=== PATIENT | male | born 1975 | race Caucasian/White ===

== ENCOUNTER 2016-11-24 23:09 | Inpatient (IN) ==
[2016-11-24 23:39] LABS: Bilirubin,Urine Negative (Negative); Blood,Urine Trace (Negative); Clarity,Urine Clear (Clear); Color,Urine Yellow (Yellow); Glucose,Urine (UA) Normal (Normal); Ketones,Urine Negative (Negative); Leukocyte Esterase,Urine Negative (Negative); Nitrite,Urine Negative (Negative); Protein,Urine Negative (Neg-Trace); Urobilinogen,Urine Normal (Normal)
[2016-11-24 23:40] LABS: Basophils # 0.1 K/mcL (0.0-0.2); Basophils % 0.8 %; Eosinophils # 0.4 K/mcL (0.0-0.6); Eosinophils % 3.4 %; Hematocrit 50.5 % (37.5-50.1); Hemoglobin 17.2 g/dL (12.9-16.9); Immature Granulocytes % 0.3 % (0-4); Lymphocytes # 3.4 K/mcL (0.6-4.6); Lymphocytes % 28.9 %; Mean Corpuscular HGB Conc 34.1 g/dL (31.6-35.5); Mean Corpuscular Hemoglobin 29.8 pg (28.0-33.3); Mean Corpuscular Volume 87.5 fL (83.0-100.0); Mean Platelet Volume 9.6 fL (9.4-12.4); Monocytes # 1.1 K/mcL (0.0-1.3); Neutrophils # 6.8 K/mcL (1.6-8.9); Platelet Count 348 K/mcL (140-400); Red Blood Count 5.77 M/mcL (4.19-5.50); Red Cell Distribution Width 13.1 % (11.5-14.5); Segmented Neutrophils % 57.6 %
[2016-11-24 23:41] LABS: Bacteria,Urine None Seen per hpf (None-Few); Hyaline Casts,Urine None Seen per lpf (None-Few); RBC,Urine 0-3 per hpf (0-3); Squamous Epithelial Cell,Urine None Seen per lpf (None-Few); WBC,Urine 0-3 per hpf (0-3)
[2016-11-24 23:44] LABS: Amphetamine Screen,Urine Negative ng/mL (Cutoff=1000); Barbiturate Screen,Urine Negative ng/mL (Cutoff=200); Benzodiazepines Screen,Urine Negative ng/mL (Cutoff=200); Cannabinoid Screen,Urine Negative ng/mL (Cutoff = 50); Cocaine Screen,Urine Negative ng/mL (Cutoff= 300); Opiate Screen,Urine Negative ng/mL (Cutoff=300); Phencyclidine Screen,Urine Negative ng/mL (Cutoff=25)
[2016-11-24 23:53] LABS: BUN/Creatinine Ratio 12 (6-26); Blood Urea Nitrogen 12 mg/dL (8-26); Calcium 8.8 mg/dL (8.6-10.8); Carbon Dioxide 20 mEq/L (19-29); Chloride 105 mEq/L (98-109); Glucose 93 mg/dL (70-99); Osmolality,Calculated 287 (280-300); Potassium 3.8 mEq/L (3.5-4.5); Sodium 139 mEq/L (136-145); eGFR For African Americans > 60 (> 60); eGFR For Non-African Americans > 60 (> 60)
[2016-11-25 00:42] LABS: Ethanol 107 mg/dL (0-10)
[2016-11-25 00:57] LABS: Acetaminophen < 1.0 mcg/mL (10-30); Salicylate < 5.0 mg/dL (15-30)
--- NOTE | 2016-11-25 01:09 | Emergency Department Note ---
Disposition Clinical Impression: Suicidal ideation, Acute anxiety Disposition: Admitted As Inpatient Condition: Good Time of Disposition: 03:51 Psych HPI - General Chief Complaint: ED Psychiatric Symptoms Stated Complaint: SI/HI Time Seen by Provider: 11/24/16 23:31 Source: patient, family Nursing Notes Reviewed: Yes Vital Signs Reviewed: Yes - History of Present Illness HPI Narrative: 41-year-old male smoker with known history of anxiety presents with recent suicidal and homicidal ideation. He describes recently having significant life stressors relating around the bad behavior of teenage daughters who previously stated this mother, however the past year now living with him and his . He states that his head height today which prompted his visit to the emergency department. His Knee by his , and she mentions that patient's older daughter had walked into her room approximately 2 hours prior to since arrival and patient had been attempting to ingest an entire bottle of his hydrochlorothiazide inside the pressure medications. Patient and both state that he had with the medications out without swallowing any. Patient also mentioned he had an episode of homicidal ideation, prior to arrival when he came angry with a bystander at a gas station earlier today. Patient mentions a history of anxiety, for which she is prescribed wellbutrin by his primary care provider. Patient also mentions an admission to [facility] 10 or 15 years ago. Patient denies any suicidal or homicidal ideations. - Related Data Previous Rx's Medication Instructions Recorded Benzonatate [Tessalon] 200 mg PO BID #20 capsule 09/27/16 Allergies Allergy/AdvReac Type Severity Reaction Status Date / Time morphine AdvReac See Verified 11/24/16 23:13 Comments All systems ED: reviewed and negative except as stated. Constitutional: Denies: fever, chills ENT ED: Denies: throat pain Cardiovascular: Reports: chest pain. Denies: palpitations Respiratory: Denies: dyspnea, wheezes, hemoptysis Gastrointestinal: Denies: abdominal pain, nausea, vomiting Integumentary: Denies: rash Neurological: Denies: headache, weakness Psychiatric: Reports: anxiety, depression, suicidal thoughts, homicidal thoughts. Denies: auditory hallucinations, visual hallucinations Past Medical History - Past Medical History Medical history: Reports: hyperlipidemia, hypertension Psychiatric history: Reports: anxiety, depression - Social History Smoking Status: Former smoker Smokeless Tobacco Status: No Alcohol use: Reports: none Drug use: Reports: none Physical Exam - General Limitations: no limitations General appearance: alert, in no apparent distress - Head Head exam: normocephalic - Eye Eye exam: Present: EOMI - ENT ENT exam: mucous membranes moist - Neck Neck exam: Present: full ROM - Chest Chest inspection: Present: normal inspection, symmetric chest wall rise. Absent : tenderness - Respiratory Respiratory exam: Present: normal lung sounds bilaterally. Absent: respiratory distress - Cardiovascular Cardiovascular exam: Present: tachycardia - Extremities Exam Extremities exam: Present: full ROM, normal capillary refill - Back Exam Back exam: Present: full ROM - Neurological Exam Neurological exam: Present: alert - Psychiatric Psychiatric exam: Present: normal affect, anxious - Skin Skin exam: Present: warm, dry, intact, normal color. Absent: rash, cyanosis, diaphoresis Course Course Narrative: Patient is a 41-year-old male smoker that arrives by private vehicle with concern for recent suicidal and homicidal ideation. Does have a history of anxiety and hypertension.. Medications at home hydrochlorothiazide, Wellbutrin. He does mention recent episodes of chest pain for which he has been evaluated in the past, including a cardiac workup within the past half year , as well as a visit to her hospital. He mentions doctors in the past with his chest pain is related to anxiety. Patient denies any shortness of breath, diaphoresis, nausea, neck or extremity pain, or any exertional component to his chest pain. Patient describes attempt to suicide by swelling his hydrochlorothiazide blood pressure medication. He denies actually swallowing any and had spit them out when his adult age daughter walked in on him. Patient seen and examined. He appears anxious, but in no acute distress is toxic. He is completely by his . Workup for medical clearance has been initiated. Blood alcohol level was 107. Due to patient's risk factors, and patient's recent intermittent episodes of chest pain will also order EKG. - Reevaluation(s) Reevaluation #1: EKG sinus tachycardia with rate of 105, no concerning ST changes. EtOH level within limits. Pt medically cleared for 1a eval Time: 02:15 Reevaluation #2: Patient was medically cleared and evaluated by when a staff. Did discuss patient with one a nurse, I discussed patient with on-call psychiatrist Dr. Bryant, who advised patient be admitted for further evaluation and stabilization. They also requested Ativan for patient's anxiety and pink slip. Time: 03:48 Vital Signs Temperature 98.9 F 11/24/16 23:13 Pulse Rate 120 11/24/16 23:13 Respiratory Rate 18 11/24/16 23:13 Blood Pressure 135/85 11/24/16 23:13 O2 Sat by Pulse Oximetry 95 11/24/16 23:13 Temperature 98.4 F 11/25/16 04:25 Pulse Rate 96 11/25/16 04:51 Respiratory Rate 16 11/25/16 04:25 Blood Pressure 139/107 11/25/16 04:51 O2 Sat by Pulse Oximetry 95 11/25/16 02:20 Oxygen Delivery Oxygen Delivery Room Air Psych - MDM Narrative Medical decision making narrative: All Lab Results (24 Hours) 11/24/16 11/24/16 11/24/16 Range/Units 23:20 23:20 23:32 WBC 11.8 H (4.3-11.1) K/mcL RBC 5.77 H (4.19-5.50) M/mcL Hgb 17.2 H (12.9-16.9) g/dL Hct 50.5 H (37.5-50.1) % MCV 87.5 (83.0-100.0) fL MCH 29.8 (28.0-33.3) pg MCHC 34.1 (31.6-35.5) g/dL RDW 13.1 (11.5-14.5) % Plt Count 348 (140-400) K/mcL MPV 9.6 (9.4-12.4) fL Immature Gran % 0.3 (0-4) % Seg Neutrophils % 57.6 % Lymphocytes % 28.9 % Monocytes % 9.0 % Eosinophils % 3.4 % Basophils % 0.8 % Neutrophils # 6.8 (1.6-8.9) K/mcL Lymphocytes # 3.4 (0.6-4.6) K/mcL Monocytes # 1.1 (0.0-1.3) K/mcL Eosinophils # 0.4 (0.0-0.6) K/mcL Basophils # 0.1 (0.0-0.2) K/mcL Sodium (136-145) mEq/L Potassium (3.5-4.5) mEq/L Chloride (98-109) mEq/L Carbon Dioxide (19-29) mEq/L BUN (8-26) mg/dL Creatinine (0.72-1.25) mg/dL Est GFR ( Amer) (> 60) Est GFR (Non-Af Amer) (> 60) BUN/Creatinine Ratio (6-26) Glucose (70-99) mg/dL Calculated Osmolality (280-300) Calcium (8.6-10.8) mg/dL Urine Color Yellow (Yellow) Urine Clarity Clear (Clear) Urine pH 6.0 (5.0-8.0) pH Units Ur Specific [place] 1.010 (1.010-1.025) Urine Protein Negative (Neg-Trace) mg/dL Urine Glucose (UA) Normal (Normal) mg/dL Urine Ketones Negative (Negative) mg/dL Urine Blood Trace H (Negative) Urine Nitrite Negative (Negative) Urine Bilirubin Negative (Negative) Urine Urobilinogen Normal (Normal) mg/dL Ur Leukocyte Esterase Negative (Negative) Urine Microscopic RBC 0-3 (0-3) per hpf Urine Microscopic WBC 0-3 (0-3) per hpf Ur Squamous Epith Cells None Seen (None-Few) per lpf Urine Bacteria None Seen (None-Few) per hpf Hyaline Casts None Seen (None-Few) per lpf Salicylates (15-30) mg/dL Urine Opiates Screen Negative (Wioadl=801) ng/mL Acetaminophen (10-30) mcg/mL Ur Barbiturates Screen Negative (Wkwnvt=744) ng/mL Ur Phencyclidine Scrn Negative (Cutoff=25) ng/mL Ur Amphetamines Screen Negative (Owfoaf=8687) ng/mL U Benzodiazepines Scrn Negative (Erytkj=474) ng/mL Urine Cocaine Screen Negative (Cutoff= 300) ng/mL U Marijuana (THC) Screen Negative (Cutoff = 50) ng/mL Ethyl Alcohol (0-10) mg/dL 11/24/16 11/25/16 Range/Units 23:32 01:20 WBC (4.3-11.1) K/mcL RBC (4.19-5.50) M/mcL Hgb (12.9-16.9) g/dL Hct (37.5-50.1) % MCV (83.0-100.0) fL MCH (28.0-33.3) pg MCHC (31.6-35.5) g/dL RDW (11.5-14.5) % Plt Count (140-400) K/mcL MPV (9.4-12.4) fL Immature Gran % (0-4) % Seg Neutrophils % % Lymphocytes % % Monocytes % % Eosinophils % % Basophils % % Neutrophils # (1.6-8.9) K/mcL Lymphocytes # (0.6-4.6) K/mcL Monocytes # (0.0-1.3) K/mcL Eosinophils # (0.0-0.6) K/mcL Basophils # (0.0-0.2) K/mcL Sodium 139 (136-145) mEq/L Potassium 3.8 (3.5-4.5) mEq/L Chloride 105 (98-109) mEq/L Carbon Dioxide 20 (19-29) mEq/L BUN 12 (8-26) mg/dL Creatinine 1.01 (0.72-1.25) mg/dL Est GFR ( Amer) > 60 (> 60) Est GFR (Non-Af Amer) > 60 (> 60) BUN/Creatinine Ratio 12 (6-26) Glucose 93 (70-99) mg/dL Calculated Osmolality 287 (280-300) Calcium 8.8 (8.6-10.8) mg/dL Urine Color (Yellow) Urine Clarity (Clear) Urine pH (5.0-8.0) pH Units Ur Specific [place] (1.010-1.025) Urine Protein (Neg-Trace) mg/dL Urine Glucose (UA) (Normal) mg/dL Urine Ketones (Negative) mg/dL Urine Blood (Negative) Urine Nitrite (Negative) Urine Bilirubin (Negative) Urine Urobilinogen (Normal) mg/dL Ur Leukocyte Esterase (Negative) Urine Microscopic RBC (0-3) per hpf Urine Microscopic WBC (0-3) per hpf Ur Squamous Epith Cells (None-Few) per lpf Urine Bacteria (None-Few) per hpf Hyaline Casts (None-Few) per lpf Salicylates < 5.0 L (15-30) mg/dL Urine Opiates Screen (Lqfvad=359) ng/mL Acetaminophen < 1.0 L (10-30) mcg/mL Ur Barbiturates Screen (Xwlloc=172) ng/mL Ur Phencyclidine Scrn (Cutoff=25) ng/mL Ur Amphetamines Screen (Kwztly=8881) ng/mL U Benzodiazepines Scrn (Ahqtxf=333) ng/mL Urine Cocaine Screen (Cutoff= 300) ng/mL U Marijuana (THC) Screen (Cutoff = 50) ng/mL Ethyl Alcohol 107 H 57 H (0-10) mg/dL - Lab Data Lab results reviewed: Yes I reviewed the patient's lab results. Result diagrams: 11/24/16 23:32 11/24/16 23:32 Lab Results 11/24/16 11/24/16 11/24/16 Range/Units 23:20 23:20 23:32 WBC 11.8 H (4.3-11.1) K/mcL RBC 5.77 H (4.19-5.50) M/mcL Hgb 17.2 H (12.9-16.9) g/dL Hct 50.5 H (37.5-50.1) % MCV 87.5 (83.0-100.0) fL MCH 29.8 (28.0-33.3) pg MCHC 34.1 (31.6-35.5) g/dL RDW 13.1 (11.5-14.5) % Plt Count 348 (140-400) K/mcL MPV 9.6 (9.4-12.4) fL Immature Gran % 0.3 (0-4) % Seg Neutrophils % 57.6 % Lymphocytes % 28.9 % Monocytes % 9.0 % Eosinophils % 3.4 % Basophils % 0.8 % Neutrophils # 6.8 (1.6-8.9) K/mcL Lymphocytes # 3.4 (0.6-4.6) K/mcL Monocytes # 1.1 (0.0-1.3) K/mcL Eosinophils # 0.4 (0.0-0.6) K/mcL Basophils # 0.1 (0.0-0.2) K/mcL Sodium (136-145) mEq/L Potassium (3.5-4.5) mEq/L Chloride (98-109) mEq/L Carbon Dioxide (19-29) mEq/L BUN (8-26) mg/dL Creatinine (0.72-1.25) mg/dL Est GFR ( Amer) (> 60) Est GFR (Non-Af Amer) (> 60) BUN/Creatinine Ratio (6-26) Glucose (70-99) mg/dL Calculated Osmolality (280-300) Calcium (8.6-10.8) mg/dL Urine Color Yellow (Yellow) Urine Clarity Clear (Clear) Urine pH 6.0 (5.0-8.0) pH Units Ur Specific [place] 1.010 (1.010-1.025) Urine Protein Negative (Neg-Trace) mg/dL Urine Glucose (UA) Normal (Normal) mg/dL Urine Ketones Negative (Negative) mg/dL Urine Blood Trace H (Negative) Urine Nitrite Negative (Negative) Urine Bilirubin Negative (Negative) Urine Urobilinogen Normal (Normal) mg/dL Ur Leukocyte Esterase Negative (Negative) Urine Microscopic RBC 0-3 (0-3) per hpf Urine Microscopic WBC 0-3 (0-3) per hpf Ur Squamous Epith Cells None Seen (None-Few) per lpf Urine Bacteria None Seen (None-Few) per hpf Hyaline Casts None Seen (None-Few) per lpf Salicylates (15-30) mg/dL Urine Opiates Screen Negative (Ypndqp=971) ng/mL Acetaminophen (10-30) mcg/mL Ur Barbiturates Screen Negative (Eclvza=303) ng/mL Ur Phencyclidine Scrn Negative (Cutoff=25) ng/mL Ur Amphetamines Screen Negative (Ahtwai=4386) ng/mL U Benzodiazepines Scrn Negative (Hfeuij=637) ng/mL Urine Cocaine Screen Negative (Cutoff= 300) ng/mL U Marijuana (THC) Screen Negative (Cutoff = 50) ng/mL Ethyl Alcohol (0-10) mg/dL 11/24/16 11/25/16 Range/Units 23:32 01:20 WBC (4.3-11.1) K/mcL RBC (4.19-5.50) M/mcL Hgb (12.9-16.9) g/dL Hct (37.5-50.1) % MCV (83.0-100.0) fL MCH (28.0-33.3) pg MCHC (31.6-35.5) g/dL RDW (11.5-14.5) % Plt Count (140-400) K/mcL MPV (9.4-12.4) fL Immature Gran % (0-4) % Seg Neutrophils % % Lymphocytes % % Monocytes % % Eosinophils % % Basophils % % Neutrophils # (1.6-8.9) K/mcL Lymphocytes # (0.6-4.6) K/mcL Monocytes # (0.0-1.3) K/mcL Eosinophils # (0.0-0.6) K/mcL Basophils # (0.0-0.2) K/mcL Sodium 139 (136-145) mEq/L Potassium 3.8 (3.5-4.5) mEq/L Chloride 105 (98-109) mEq/L Carbon Dioxide 20 (19-29) mEq/L BUN 12 (8-26) mg/dL Creatinine 1.01 (0.72-1.25) mg/dL Est GFR ( Amer) > 60 (> 60) Est GFR (Non-Af Amer) > 60 (> 60) BUN/Creatinine Ratio 12 (6-26) Glucose 93 (70-99) mg/dL Calculated Osmolality 287 (280-300) Calcium 8.8 (8.6-10.8) mg/dL Urine Color (Yellow) Urine Clarity (Clear) Urine pH (5.0-8.0) pH Units Ur Specific [place] (1.010-1.025) Urine Protein (Neg-Trace) mg/dL Urine Glucose (UA) (Normal) mg/dL Urine Ketones (Negative) mg/dL Urine Blood (Negative) Urine Nitrite (Negative) Urine Bilirubin (Negative) Urine Urobilinogen (Normal) mg/dL Ur Leukocyte Esterase (Negative) Urine Microscopic RBC (0-3) per hpf Urine Microscopic WBC (0-3) per hpf Ur Squamous Epith Cells (None-Few) per lpf Urine Bacteria (None-Few) per hpf Hyaline Casts (None-Few) per lpf Salicylates < 5.0 L (15-30) mg/dL Urine Opiates Screen (Zyelea=180) ng/mL Acetaminophen < 1.0 L (10-30) mcg/mL Ur Barbiturates Screen (Ubvfau=401) ng/mL Ur Phencyclidine Scrn (Cutoff=25) ng/mL Ur Amphetamines Screen (Pwzuyl=0174) ng/mL U Benzodiazepines Scrn (Xcrinn=316) ng/mL Urine Cocaine Screen (Cutoff= 300) ng/mL U Marijuana (THC) Screen (Cutoff = 50) ng/mL Ethyl Alcohol 107 H 57 H (0-10) mg/dL - EKG Data EKG attestation: Yes I reviewed and interpreted this EKG. EKG results narrative: EKG sinus tachycardia with rate of 105, no concerning ST changes. Psychiatric Medical Clearance - Medical Clearance Checklist Medical History: No Social History Section defined Current Vitals: Last Vital Signs Temp 98.4 F 11/25/16 04:25 Pulse 96 11/25/16 04:51 Resp 16 11/25/16 04:25 BP 139/107 11/25/16 04:51 Pulse Ox 95 11/25/16 02:20 Psychiatric Lab Panel: Drug Levels and Toxicity 11/24/16 11/24/16 11/25/16 23:20 23:32 01:20 Urine Opiates Screen Negative Acetaminophen < 1.0 L Ur Barbiturates Screen Negative Ur Phencyclidine Scrn Negative Ur Amphetamines Screen Negative U Benzodiazepines Scrn Negative Urine Cocaine Screen Negative U Marijuana (THC) Screen Negative Ethyl Alcohol 107 H 57 H Abnormal Labs: Abnormal lab results WBC 11.8 K/mcL (4.3-11.1) H 11/24/16 23:32 RBC 5.77 M/mcL (4.19-5.50) H 11/24/16 23:32 Hgb 17.2 g/dL (12.9-16.9) H 11/24/16 23:32 Hct 50.5 % (37.5-50.1) H 11/24/16 23:32 Urine Blood Trace (Negative) H 11/24/16 23:20 Salicylates < 5.0 mg/dL (15-30) L 11/24/16 23:32 Acetaminophen < 1.0 mcg/mL (10-30) L 11/24/16 23:32 Ethyl Alcohol 57 mg/dL (0-10) H 11/25/16 01:20 Attestation Statement - Attestation Attestation: I did not see this patient. This chart is being signed per hospital protocol.
[2016-11-25] MEDS ORDERED: *HR* LORazepam 1 MG TABLET PO ONE (03:41)
[2016-11-25] MEDS ORDERED: traZODone 50 MG TABLET PO PRN (04:13)
[2016-11-25] MEDS ORDERED: Mag Hydrox/Al Hydrox/Simeth 30 ML UDC PO PRN (04:13)
[2016-11-25] MEDS ORDERED: *HR* LORazepam 2 MG/ML VIAL IM PRN (04:13)
[2016-11-25] MEDS ORDERED: Haloperidol Lactate 5 MG/ML VIAL IM PRN (04:13)
[2016-11-25] MEDS ORDERED: MOM Conc 10 ML UD.LIQ PO PRN (04:13)
[2016-11-25] MEDS ORDERED: Acetaminophen 325 MG TABLET PO PRN (04:13)
--- NOTE | 2016-11-25 10:31 | Psychiatry History & Physical ---
Date of Encounter: 11/25/16 Time of Encounter: 11:10 History of Present Illness Patient Stated Chief Complaint: Suicidal and homicidal ideation Medicare Admission Attestation: For traditional Medicare patients the provided hospital inpatient services are reasonable and necessary and in the case of services not specified as inpatient -only under 42 CFR 419.22 (n), that they are appropriately provided as inpatient services in accordance 42 CFR 412.3. For Critical Access Hospital the patient may reasonably be expected to be discharged or transferred to a hospital within 96 hours after admission to the Critical Access Hospital. Admitted From: Emergency Dept History of Present Illness: Mr. Colin is a 41 year old male admitted from the emergency room for presentation with suicidal and homicidal ideation. Patient denies overdose on his medication. He is dealing with family stress related to his ex- and older children living with him. Patient has history of depression and anxiety and previous treatment about 10 years ago. He reports poor sleep and feeling of hopelessness and suicidal ideation. Past Med Surg Social Fam HX - Past Medical History Medical history: hyperlipidemia, hypertension - Past Psychiatric History Psychiatric history: Reports: anxiety, depression Family psychiatric history: Unknown Family History of Suicide: Unknown - Social History Smoking Status: Former smoker Smokeless Tobacco Status: No Alcohol use: none Drug use: none Medications & Allergies Benzonatate [Tessalon] 200 mg PO BID #20 capsule 09/27/16 [Rx] Allergies morphine Adverse Reaction (Verified 11/24/16 23:13) See Comments Review of Systems Psychiatric: Reports: depression, anxiety, suicidal ideation, homicidal ideation , hopelessness Mental Status Exam Patient orientation: Yes Person, Yes Time, Yes Place Level of alertness: Alert Patient appearance: Appropriate, Unkempt, Disheveled, Obese Behavior: calm, cooperative Psychomotor activity: Slowed Eye contact: Maintains Eye Contact Mood description: Depressed, Anxious Affect description: constricted, dysphoric Speech pattern: Normal rate, Normal rhythm, Normal tone, Excessive Speech volume: Normal Thought process: Linear, Goal Oriented, Circumstantial, Tangential Thought content: Yes Suicidal ideation, Yes Homicidal ideation Perceptual disturbances: No Auditory hallucinations, No Visual hallucinations Attention span: Capable of Focused Attention Memory description: Grossly Intact Patient reliability: Reliable Historian Intelligence estimate: Average Judgment: Limited Insight: Partial Results - Vital Signs Vital signs: Temp Pulse Resp BP Pulse Ox 98.4 F 96 16 139/107 95 11/25/16 04:25 11/25/16 04:51 11/25/16 04:25 11/25/16 04:51 11/25/16 02:20 - Labs Labs: Laboratory Last Values WBC 11.8 K/mcL (4.3-11.1) H 11/24/16 23:32 RBC 5.77 M/mcL (4.19-5.50) H 11/24/16 23:32 Hgb 17.2 g/dL (12.9-16.9) H 11/24/16 23:32 Hct 50.5 % (37.5-50.1) H 11/24/16 23:32 MCV 87.5 fL (83.0-100.0) 11/24/16 23:32 MCH 29.8 pg (28.0-33.3) 11/24/16 23:32 MCHC 34.1 g/dL (31.6-35.5) 11/24/16 23:32 RDW 13.1 % (11.5-14.5) 11/24/16 23:32 Plt Count 348 K/mcL (140-400) 11/24/16 23:32 MPV 9.6 fL (9.4-12.4) 11/24/16 23:32 Immature Gran % 0.3 % (0-4) 11/24/16 23: Seg Neutrophils % 57.6 % 11/24/16 23:32 Lymphocytes % 28.9 % 11/24/16 23:32 Monocytes % 9.0 % 11/24/16 23:32 Eosinophils % 3.4 % 11/24/16 23: Basophils % 0.8 % 11/24/16 23:32 Neutrophils # 6.8 K/mcL (1.6-8.9) 11/24/16 23:32 Lymphocytes # 3.4 K/mcL (0.6-4.6) 11/24/16 23:32 Monocytes # 1.1 K/mcL (0.0-1.3) 11/24/16 23:32 Eosinophils # 0.4 K/mcL (0.0-0.6) 11/24/16 23:32 Basophils # 0.1 K/mcL (0.0-0.2) 11/24/16 23:32 Sodium 139 mEq/L (136-145) 02/11/17 23:32 Potassium 3.8 mEq/L (3.5-4.5) 11/24/16 23:32 Chloride 105 mEq/L (98-109) 11/24/16 23:32 Carbon Dioxide 20 mEq/L (19-29) 11/24/16 23:32 BUN 12 mg/dL (8-26) 11/24/16 23:32 Creatinine 1.01 mg/dL (0.72-1.25) 11/24/16 23:32 Est GFR ( Amer) > 60 (> 60) 11/24/16 23:32 Est GFR (Non-Af Amer) > 60 (> 60) 11/24/16 23:32 BUN/Creatinine Ratio 12 (6-26) 11/24/16 23:32 Glucose 93 mg/dL (70-99) 11/24/16 23:32 Calculated Osmolality 287 (280-300) 11/24/16 23:32 Calcium 8.8 mg/dL (8.6-10.8) 11/24/16 23:32 Urine Color Yellow (Yellow) 11/24/16 23:20 Urine Clarity Clear (Clear) 11/24/16 23:20 Urine pH 6.0 pH Units (5.0-8.0) 11/24/16 23:20 Ur Specific [place] 1.010 (1.010-1.025) 11/24/16 23:20 Urine Protein Negative mg/dL (Neg-Trace) 11/24/16 23:20 Urine Glucose (UA) Normal mg/dL (Normal) 11/24/16 23:20 Urine Ketones Negative mg/dL (Negative) 11/24/16 23:20 Urine Blood Trace (Negative) H 11/24/16 23:20 Urine Nitrite Negative (Negative) 11/24/16 23:20 Urine Bilirubin Negative (Negative) 11/24/16 23:20 Urine Urobilinogen Normal mg/dL (Normal) 11/24/16 23:20 Ur Leukocyte Esterase Negative (Negative) 11/24/16 23:20 Urine Microscopic RBC 0-3 per hpf (0-3) 11/24/16 23:20 Urine Microscopic WBC 0-3 per hpf (0-3) 11/24/16 23:20 Ur Squamous Epith Cells None Seen per lpf (None-Few) 11/24/16 23:20 Urine Bacteria None Seen per hpf (None-Few) 11/24/16 23:20 Hyaline Casts None Seen per lpf (None-Few) 11/24/16 23:20 Salicylates < 5.0 mg/dL (15-30) L 11/24/16 23:32 Urine Opiates Screen Negative ng/mL (Xffpnk=701) 11/24/16 23:20 Acetaminophen < 1.0 mcg/mL (10-30) L 11/24/16 23:32 Ur Barbiturates Screen Negative ng/mL (Lwhzhg=428) 11/24/16 23:20 Ur Phencyclidine Scrn Negative ng/mL (Cutoff=25) 11/24/16 23:20 Ur Amphetamines Screen Negative ng/mL (Ryvorc=3363) 11/24/16 23:20 U Benzodiazepines Scrn Negative ng/mL (Ubntem=818) 11/24/16 23:20 Urine Cocaine Screen Negative ng/mL (Cutoff= 300) 11/24/16 23:20 U Marijuana (THC) Screen Negative ng/mL (Cutoff = 50) 11/24/16 23:20 Ethyl Alcohol 57 mg/dL (0-10) H 11/25/16 01:20 Assessment and Plan (1) Suicidal ideation Current visit: Yes Status: Acute Plan: Admit inpatient for safety and stabilization, Close observation, Suicide Precautions per unit protocol, Encourage participation in unit milieu, Group Therapy, Monitor sleep, Monitor appetite Additional Plan: We will increase Wellbutrin to 300 mg daily and we will add Celexa 20 mg daily benefits and side effects were discussed and patient is agreeable to start treatment. Risks, benefits, side effects, alternatives discussed w/pt: Yes Patient agreeable to treatment: Yes (2) Depressive disorder, atypical Current visit: Yes Status: Acute Plan: Admit inpatient for safety and stabilization, Close observation, Suicide Precautions per unit protocol, Encourage participation in unit milieu, Group Therapy, Monitor sleep, Monitor appetite
[2016-11-25] MEDS: Nicotine 14 MG PATCH.TD24 TD SCH (11:15)
[2016-11-25] MEDS: BuPROPion SR (12 HR) 150 MG TABLET PO SCH ×2 (11:15→20:33)
[2016-11-25] MEDS: hydrOXYzine pamoate 25 MG CAPSULE PO PRN ×2 (11:17→21:35)
[2016-11-25] MEDS: *HR* LORazepam 1 MG TABLET PO PRN (14:33)
--- NOTE | 2016-11-25 14:49 | Electrocardiograph Report ---
[address] [address] Test Date: 2016-11-25 Pat Name: Hailey Colin Department: 104 Room: 1A21 Gender: M Logging Assistant: : 1975 Requested By: Nakul Mahmood Order Number: [id number] Reading MD: Yenifer Gamboa Measurements Intervals [place] Rate: 105 P: 53 RI: 157 QRS: 84 QRSD: 110 T: 47 QT: 352 QTc: 413 Interpretive Statements SINUS TACHYCARDIA Electronically Signed On 11-25-2016 14:47:42 EST by Yenifer Gamboa
--- NOTE | 2016-11-26 09:07 | Psychiatry Progress Note ---
Date of Encounter: 11/26/16 Time of Encounter: 10:44 Subjective Interval history: Pt seen and evaluated. Pt reports being very anxious he reports he is on wellbutrin (been on 3 months) feels it doesnt help much and reports he got ativan yesterday which helped a little. He reprots he is sleeping good "here" with the ativan. He denies issues with substance abuse. Appetite good. Pt endorsed anxiety sx's 07/23 (10 being worse) Pt endorsed depressive sx's 07/23 (10 being worse) Past meds: paxil, ativan, zoloft, celexa Discussed started effexor due to failing more than 2 SSRI's pt agreeable Discussed starting remeron for anxiety and sleep at night will schedule low dose 0.25 mg Review of Systems Psychiatric: Reports: depression, anxiety, anhedonia, difficulty concentrating, hopelessness. Denies: suicidal ideation, homicidal ideation, visual hallucinations Objective: Exam Patient orientation: Yes Person, Yes Time, Yes Place Level of alertness: Alert Patient appearance: Appropriate, Obese Behavior: calm, cooperative, anxious, tearful Psychomotor activity: Slowed Eye contact: Maintains Eye Contact Mood description: Depressed, Anxious Affect description: constricted, dysphoric Speech pattern: Normal rate, Normal rhythm, Normal tone, Excessive Speech volume: Normal Thought process: Linear, Goal Oriented, Circumstantial, Tangential Thought content: No Suicidal ideation, No Homicidal ideation Perceptual disturbances: No Auditory hallucinations, No Visual hallucinations Judgment: Fair Insight: Partial Results - Vital Signs Vital Signs: Temp Pulse Resp BP Pulse Ox 98.7 F 90 18 137/99 95 11/25/16 21:00 11/25/16 21:00 11/25/16 21:00 11/25/16 21:00 11/25/16 02:20 - Labs Labs: Vital Signs Temp Pulse Resp BP 11/25/16 21:00 98.7 F 90 18 137/99 Intake and Output 11/25/16 11/26/16 11/26/16 23:59 07:59 15:59 Other: Meal Dinner Percent of Meal Consumed 100% Assessment and Plan (1) Depressive disorder, atypical Current visit: Yes Status: Acute Plan: Continue hospitalization, Encourage participation in unit milieu, Group Therapy, Monitor sleep, Monitor appetite, Family/Supportive other meeting Additional Plan: - start effexor tomm morning Risks, benefits, side effects, alternatives discussed w/pt: Yes Patient agreeable to treatment: Yes (2) Acute anxiety Current visit: Yes Status: Acute Plan: Continue hospitalization, Encourage participation in unit milieu, Group Therapy, Monitor sleep, Monitor appetite, Family/Supportive other meeting Additional Plan: - start remeron 7.5 mg qhs for anxiety and insomnia - start ativan 0.25 mg TID for anxiety Risks, benefits, side effects, alternatives discussed w/pt: Yes Patient agreeable to treatment: Yes Consult Discharge Plan - Plan Referrals: NO,PCP [Primary Care Provider] -
--- NOTE | 2016-11-26 09:18 | Discharge Summary ---
Date of Encounter: 11/26/16 Medications - Discharge Medications Atorvastatin [Lipitor] 40 mg PO DAILY 11/25/16 [History] BuPROPion XL (24 HR) [Wellbutrin XL] 150 mg PO DAILY 11/25/16 [History] Hydrochlorothiazide [Hydrochlorothiazide] 50 mg PO DAILY 11/25/16 [History] Allergies morphine Allergy (Verified 11/25/16 13:09) See Comments SWELLING AT INJECTION SITE- Provider Date of admission: 11/25/16 03:54 Primary care physician: PCP NO Assessment and Plan - Follow up Plan Follow up with: NO,PCP [Primary Care Provider] - Hospital Course Hospital course: Mr. Colin is a 41 year old male - Time Spent with Patient Total time spent providing and/or coordinating discharge services: Mental Status Exam - Mental Status Exam Patient orientation: Yes Person, Yes Time, Yes Place Level of alertness: Alert Patient appearance: Appropriate, Unkempt, Disheveled, Obese Behavior: calm, cooperative Psychomotor activity: Slowed Eye contact: Maintains Eye Contact Mood description: Depressed, Anxious Affect description: constricted, dysphoric Speech pattern: Normal rate, Normal rhythm, Normal tone, Excessive Speech Volume: Normal Thought process: Linear, Goal Oriented, Circumstantial, Tangential Thought Content: Yes Suicidal ideation, Yes Homicidal ideation Perceptual Disturbances: No Auditory hallucinations, No Visual hallucinations Judgment: Limited Insight: Partial
[2016-11-26] MEDS: BuPROPion SR (12 HR) 150 MG TABLET PO SCH ×2 (09:25→21:26)
[2016-11-26] MEDS: hydrOXYzine pamoate 25 MG CAPSULE PO PRN (09:25)
[2016-11-26] MEDS: Nicotine 14 MG PATCH.TD24 TD SCH (09:25)
[2016-11-26] MEDS: hydroCHLOROthiazide 25 MG TABLET PO SCH (11:52)
[2016-11-26] MEDS: *HR* LORazepam 1 MG TABLET PO PRN (14:31)
[2016-11-26] MEDS: Mirtazapine 15 MG TABLET PO SCH (21:26)
[2016-11-27] MEDS: BuPROPion SR (12 HR) 150 MG TABLET PO SCH ×2 (08:41→21:02)
[2016-11-27] MEDS: hydroCHLOROthiazide 25 MG TABLET PO SCH (08:42)
[2016-11-27] MEDS: Venlafaxine XR (24 HR) 75 MG CAP.ER.24H PO SCH (08:42)
[2016-11-27] MEDS: Nicotine 14 MG PATCH.TD24 TD SCH (08:42)
--- NOTE | 2016-11-27 09:02 | Psychiatry Progress Note ---
Date of Encounter: 11/27/16 Time of Encounter: 09:00 Subjective Interval history: Pt seen and evaluated. Pt had a small panic attack yesterday evening, he slept well last night and slept 8 hours and he reports some improvement in anxiety. Per SW the older children were removed from the home and he has had decreased anxiety since then. Review of Systems Psychiatric: Reports: depression, anxiety, anhedonia, difficulty concentrating, hopelessness. Denies: suicidal ideation, homicidal ideation, visual hallucinations Objective: Exam Patient orientation: Yes Person, Yes Time, Yes Place Level of alertness: Alert Patient appearance: Appropriate, Obese Behavior: calm, cooperative, anxious, tearful Psychomotor activity: Slowed Eye contact: Maintains Eye Contact Mood description: Depressed, Anxious Affect description: constricted, dysphoric Speech pattern: Normal rate, Normal rhythm, Normal tone, Excessive Speech volume: Normal Thought process: Linear, Goal Oriented, Circumstantial, Tangential Thought content: No Suicidal ideation, No Homicidal ideation Perceptual disturbances: No Auditory hallucinations, No Visual hallucinations Judgment: Fair Insight: Partial Results - Vital Signs Vital Signs: Temp Pulse Resp BP Pulse Ox 98.1 F 93 18 146/95 95 11/26/16 19:26 11/26/16 19:26 11/26/16 19:26 11/26/16 19:26 11/25/16 02:20 Assessment and Plan (1) Depressive disorder, atypical Current visit: Yes Status: Acute Plan: Continue hospitalization, Encourage participation in unit milieu, Group Therapy, Monitor sleep, Monitor appetite, Family/Supportive other meeting Additional Plan: - continue current meds and care - counseling appt made for pt outpatient which will be very helpful Risks, benefits, side effects, alternatives discussed w/pt: Yes Patient agreeable to treatment: Yes (2) Acute anxiety Current visit: Yes Status: Acute Plan: Continue hospitalization, Encourage participation in unit milieu, Group Therapy, Monitor sleep, Monitor appetite, Family/Supportive other meeting Additional Plan: - start remeron 7.5 mg qhs for anxiety and insomnia - start ativan 0.25 mg TID for anxiety Risks, benefits, side effects, alternatives discussed w/pt: Yes Patient agreeable to treatment: Yes Consult Discharge Plan - Plan Referrals: [facility] [Outside] - 12/06/16 10:00 am (The above appointment is with Sylwia Langston for counseling. Please arrive 10 minutes early for all appointments to complete the check-in process. Please bring your insurance card or HCAP award letter, and photo ID to this appointment. If you are unable to keep this appointment, 24 hour business notice of cancellation is expected. If you miss your new patient appointment, you cannot be re-scheduled in this practice. The [facility] is the [address] [place] [address] behind [facility] in [place], [place]. ) Dany Warren MD [Partnered Physician] - 12/03/16 2:30 pm (The above appointment is with Dr. Warren's colleague, Loulou Langston. Dr. Langston is no longer in the practice.)
[2016-11-27] MEDS: *HR* LORazepam 1 MG TABLET PO PRN (10:43)
[2016-11-27] MEDS: hydrOXYzine pamoate 25 MG CAPSULE PO PRN (14:39)
[2016-11-27] MEDS: Mirtazapine 15 MG TABLET PO SCH (21:01)
[2016-11-28 08:30] VITALS: BP 135/96
[2016-11-28] MEDS: Nicotine 14 MG PATCH.TD24 TD SCH (08:31)
[2016-11-28] MEDS: hydroCHLOROthiazide 25 MG TABLET PO SCH (08:32)
[2016-11-28] MEDS: Venlafaxine XR (24 HR) 75 MG CAP.ER.24H PO SCH (08:32)
[2016-11-28] MEDS: BuPROPion SR (12 HR) 150 MG TABLET PO SCH (08:32)
--- NOTE | 2016-11-28 08:42 | Discharge Summary ---
Date of Encounter: 11/28/16 Time of Encounter: 08:39 Diagnosis - Discharge Diagnosis (1) Depressive disorder, atypical Status: Acute (2) Acute anxiety Status: Acute Medications - Discharge Medications Prescriptions: BuPROPion SR (12 HR) [Wellbutrin SR] 150 mg PO BID #60 tablet.er HydrOXYzine Pamoate 25 mg PO TID PRN #90 capsule PRN Reason: Anxiety Mirtazapine [Remeron] 7.5 mg PO HS #30 tablet TraZODone 50 mg PO HS PRN #30 tablet PRN Reason: Insomnia Atorvastatin [Lipitor] 40 mg PO DAILY 11/25/16 [History] Hydrochlorothiazide 50 mg PO DAILY 11/25/16 [History] BuPROPion SR (12 HR) [Wellbutrin SR] 150 mg PO BID #60 tablet.er 11/28/16 [Rx] HydrOXYzine Pamoate 25 mg PO TID PRN #90 capsule 11/28/16 [Rx] Mirtazapine [Remeron] 7.5 mg PO HS #30 tablet 11/28/16 [Rx] TraZODone 50 mg PO HS PRN #30 tablet 11/28/16 [Rx] Allergies morphine Allergy (Verified 11/25/16 13:09) See Comments SWELLING AT INJECTION SITE- Provider Date of admission: 11/25/16 03:54 Primary care physician: PCP NO Discharging clinician: Blanca Ayala Assessment and Plan - Patient/Caregiver Discharge Instructions Activity: resume usual activities as tolerated, increase activity as tolerated, return to work Diet: low fat, low cholesterol - Follow up Plan Follow up with: [facility] [Outside] - 12/06/16 10:00 am (The above appointment is with Sylwia Langston for counseling. Please arrive 10 minutes early for all appointments to complete the check-in process. Please bring your insurance card or HCAP award letter, and photo ID to this appointment. If you are unable to keep this appointment, 24 hour business notice of cancellation is expected. If you miss your new patient appointment, you cannot be re-scheduled in this practice. The [facility] is the [address] [place] [address] behind [facility] in [place], [place]. ) Dany Warren MD [Partnered Physician] - 12/03/16 2:30 pm (The above appointment is with Dr. Warren's colleague, Loulou Langston. Dr. Langston is no longer in the practice.) Overall status at discharge: patient is back to baseline Disposition: Home, Self-Care Hospital Course Hospital course: Mr. Colin is a 41 year old male admitted to the behavioral health unit for depression and anxiety due to his home situation with his 2 teenager girls. During the first few days of his hospitalization patient was very nervous and anxious he reported that he had been overwhelmed at home with his 2 girls. Patient reported that he was not sleeping he endorsed depressive symptoms as well as anxiety symptoms. Patient was participating in groups and learning coping skills while he was here. He was medication compliant. We did discuss due to patient having a lot of anxiety at night and insomnia the discussion of starting Remeron 7.5 at bedtime and patient was agreeable to this. After getting this patient did sleep better and did not feel like his anxiety was a little better controlled. Day before discharge patient found out that his 2 daughters would be going to stay with another family member. Patient reports he was relieved about this because this will help him get back on track and get his anxiety back to level. Patient is very interested in following up outpatient for med management and we strongly encourage individual therapy and counseling. Patient was discussed for discharge due to having no issues or complications with his medication and due to patient being stable for discharge. Throughout hospitalization patient vitals were stable his appetite was good and his sleep had improved after the initiation of Remeron. Patient's family had no safety concerns with patient returning home director of social services did conduct a phone session for collateral with patient's . Time spent discussing smoking cessation with patient: 3 to 10 minutes Does patient wish to continue nicotine replacement upon disc: No - Time Spent with Patient Total time spent providing and/or coordinating discharge services: 15 min Less than 30 minutes Quality - Multiple Antipsychotics Patient discharged on 2 or more antipsychotic medications: No Mental Status Exam - Mental Status Exam Patient orientation: Yes Person, Yes Time, Yes Place Level of alertness: Alert Patient appearance: Appropriate, Obese Behavior: calm, cooperative Psychomotor activity: Normal Eye contact: Maintains Eye Contact Affect description: congruent with mood Speech pattern: Normal rate, Normal rhythm, Normal tone Speech Volume: Normal Thought process: Intact, Goal Oriented, Circumstantial, Tangential Thought Content: Yes Intact, No Suicidal ideation, No Homicidal ideation Perceptual Disturbances: No Auditory hallucinations, No Visual hallucinations Judgment: Fair Insight: Partial
== END 2016-11-28 15:45 | disposition home or self-care (01) | DRG 881 ==
LOC: EMEROO 23:09 → SUATTDRO 11-25 03:54 → 1ANU 11-25 03:54
PROVIDERS: ADMIT Psychiatry & Neurology Psychiatry; ATTEND Psychiatry & Neurology Psychiatry